=== PATIENT | male | born 1960 | race Caucasian/White ===

== ENCOUNTER 2017-01-31 10:29 | Emergency (ER) | payer OTHER ==
[~2017-01-31] VITALS: Ht 177.8 cm; Wt 86.8 kg
[~2017-01-31 10:29] MED LIST: ACETAMINOPHEN325 M1 GT; ANTIFUNGAL15 G1; BISAC-EVAC10 MG PR; DIOCTO50 MG/5 ML GT; ENEMA READY TO135 M1 PR; FLEET ENEMA-AD118 ML PR; KETOCONAZOLE120 ML TP; LACTULOSE10 GM/151 PO; MAG-AL LIQUID30 ML PO; MILK OF MAGN GT; MIRALAX17 GM GT; MIRTAZAPINE15 MG GT; MIRTAZAPINE15 MG PO; MULTIVITAM9 MG/15 M1 GT; MULTIVITAMINS1 EA11 GT; PROMOD946 ML GT; RANITIDINE HCL150 MG GT; SENNA8.6 MG GT; [UNRECOGNIZED DRUG - MIXTURE] GT
[2017-01-31 11:35] LABS: EOSINOPHIL COUNT 0.1 K/uL (0-0.3); HEMATOCRIT 45.8 % (38.0-50.0); IMMATURE GRANULOCYTE (%) 0.4 % (0.0-0.7); INSTRUMENT ABS NEUTROPHIL CT 2.7 K/uL; LYMPHOCYTE COUNT 1.8 K/uL (1.0-2.8); MCH 28.7 PG (29.0-34.0); MCHC 32.8 G/DL (30.0-36.0); MCV 87.7 FL (86-99); MEAN PLAT.VOLUME 10.7 uM^3 (9.0-12.4); MONOCYTE (%) 7.3 % (3-12); MONOCYTE COUNT 0.4 K/uL (0-0.8); NEUTROPHIL (%) 53.3 % (45-76); NEUTROPHIL COUNT 2.7 K/uL (1.8-6.4); PLATELET COUNT 218 K/uL (156-360); RBC DIS.WIDTH-CV 13.2 % (11.8-14.6); RBC DIS.WIDTH-SD 42.3 % (39-53); RED BLOOD COUNT 5.22 M/uL (4.00-5.50); WHITE BLOOD COUNT 5.1 K/uL (4.1-10.2)
[2017-01-31 11:45] LABS: CHLORIDE 109 mEq/L (99-109); SODIUM 139 mEq/L (136-147)
[2017-01-31 11:46] LABS: GLUCOSE 93 mg/dL (70-99)
[2017-01-31 11:48] LABS: ANION GAP 6 MEQ/L (2-14)
[2017-01-31 11:50] LABS: GFR ESTIMATE (CALCULATED) > 59 mL/min/
[2017-01-31 11:51] LABS: UREA NITROGEN (BUN) 15 mg/dL (9-23)
[2017-01-31 17:28] VITALS: BP 122/80
== END 2017-01-31 17:29 ==
LOC: EME 10:29
PROVIDERS: Emergency Medicine
DX: K94.23 Gastrostomy malfunction (principal); Z87.820 Personal history of traumatic brain injury; G81.90 Hemiplegia, unspecified affecting unspecified side; F32.9 Major depressive disorder, single episode, unspecified; F41.9 Anxiety disorder, unspecified; Z87.891 Personal history of nicotine dependence
CPT/HCPCS: 74177; 80048; 85025; 99281; 99282

== ENCOUNTER 2017-05-15 10:35 | Emergency (ER) | payer OTHER ==
[~2017-05-15] VITALS: Ht 185.4 cm; Wt 80.3 kg
[2017-05-15 15:52] VITALS: BP 122/86
== END 2017-05-15 16:15 ==
LOC: EME 10:35
PROC: 0D20XUZ Change Feeding Device in Upper Intestinal Tract, External Approach (ICD-10-PCS; principal; 2017-05-15)
DX: Z43.1 Encounter for attention to gastrostomy (principal); F41.9 Anxiety disorder, unspecified; F32.9 Major depressive disorder, single episode, unspecified; Z87.820 Personal history of traumatic brain injury; Z87.891 Personal history of nicotine dependence; Z88.8 Allergy status to other drugs, medicaments and biological substances
CPT/HCPCS: 74000; 99281; 99284; B4087

== ENCOUNTER 2017-05-15 22:02 | Emergency (ER) | payer OTHER ==
[~2017-05-15] VITALS: Ht 185.4 cm; Wt 80.3 kg
[2017-05-15 23:20] VITALS: BP 107/76
== END 2017-05-15 23:19 ==
LOC: EME → EDBD 22:02 → EME 22:02
DX: T85.528A Displacement of other gastrointestinal prosthetic devices, implants and grafts, initial encounter (principal); F41.9 Anxiety disorder, unspecified; R56.9 Unspecified convulsions; F32.9 Major depressive disorder, single episode, unspecified; R13.10 Dysphagia, unspecified; G81.90 Hemiplegia, unspecified affecting unspecified side; Z87.891 Personal history of nicotine dependence; Z43.1 Encounter for attention to gastrostomy
CPT/HCPCS: 74000; 99281; 99283

== ENCOUNTER 2018-02-16 12:18 | Emergency (ER) | payer OTHER ==
[~2018-02-16] VITALS: Ht 190.5 cm; Wt 81.9 kg
[2018-02-16 15:19] VITALS: BP 117/80
== END 2018-02-16 16:28 ==
LOC: EME 12:18
PROC: 0D20XUZ Change Feeding Device in Upper Intestinal Tract, External Approach (ICD-10-PCS; principal; 2018-02-16)
DX: Z43.1 Encounter for attention to gastrostomy (principal); R13.10 Dysphagia, unspecified; F41.9 Anxiety disorder, unspecified; F32.9 Major depressive disorder, single episode, unspecified; Z87.820 Personal history of traumatic brain injury; Z88.8 Allergy status to other drugs, medicaments and biological substances
CPT/HCPCS: 74018; 99281; 99285; B4087

== ENCOUNTER 2018-02-17 09:51 | Emergency (ER) | payer OTHER ==
[~2018-02-17] VITALS: Ht 190.5 cm; Wt 82.6 kg
[2018-02-17 12:17] VITALS: BP 114/79
== END 2018-02-17 12:17 ==
LOC: EME 09:51
PROC: 0D20XUZ Change Feeding Device in Upper Intestinal Tract, External Approach (ICD-10-PCS; principal; 2018-02-17)
DX: Z43.1 Encounter for attention to gastrostomy (principal); G81.90 Hemiplegia, unspecified affecting unspecified side; R56.9 Unspecified convulsions; F32.9 Major depressive disorder, single episode, unspecified; F41.9 Anxiety disorder, unspecified; Z87.820 Personal history of traumatic brain injury; Z88.8 Allergy status to other drugs, medicaments and biological substances
CPT/HCPCS: 74018; 99281; 99284; B4087